=== PATIENT | female | born 1990 | race African-American/Black ===

== ENCOUNTER 2020-10-06 00:24 | Emergency (ER) | payer SELFPAY ==
[~2020-10-06] VITALS: Ht 157.5 cm; Wt 77.3 kg
--- NOTE | 2020-10-06 00:38 | PHYS DOC ---
Past Medical History Past Medical History: Asthma, Hypertension Past Surgical History: Hysterectomy Smoking Status: Never Smoker General Adult EDM: Chief Complaint: VAGINAL PROBLEM HPI: HPI: Patient is a 30 year old with a history of a hysterectomy following her second childbirth presents with a chief complaint of vaginal bleeding that is mild and with wiping after urinating for last 2 weeks. Patient also describes some burning with urination. Patient has some very minimal lower abdominal discomfort as well. Symptoms are worse with urinating. Patient is not using tampons. Patient denies any fevers, chills breath. Patient denies any vaginal lesions. Of note the patient sexual partner has herpes. Review of Systems: Review of Systems: Constitutional: Denies fever or chills. [] Eyes: Denies change in visual acuity. [] HENT: Denies nasal congestion or sore throat. [] Respiratory: Denies cough or shortness of breath. [] Cardiovascular: Denies chest pain or edema. [] GI: Complains of mild lower abdominal pain with no nausea, vomiting, bloody stools or diarrhea. [] : Complains of dysuria with scant vaginal bleeding Musculoskeletal: Denies back pain or joint pain. [] Integument: Denies rash. [] Neurologic: Denies headache, focal weakness or sensory changes. [] Endocrine: Denies polyuria or polydipsia. [] Lymphatic: Denies swollen glands. [] Psychiatric: Denies depression or anxiety. [] Heart Score: Risk Factors: Risk Factors: DM, Current or recent (<one month) smoker, HTN, HLP, family history of CAD, obesity. Risk Scores: Score 0 - 3: 2.5% MACE over next 6 weeks - Discharge Home Score 4 - 6: 20.3% MACE over next 6 weeks - Admit for Clinical Observation Score 7 - 10: 72.7% MACE over next 6 weeks - Early Invasive Strategies Current Medications: Current Medications Ceftriaxone Sodium (Rocephin Im) 250 mg 1X ONCE IM ; Start 10/06/20 at 01:00; Stop 10/06/20 at 01:01; Status UNV Azithromycin (Zithromax) 1,000 mg 1X ONCE PO ; Start 10/06/20 at 01:00; Stop 10/06/20 at 01:01; Status UNV Ondansetron HCl (Zofran Odt) 4 mg 1X ONCE PO ; Start 10/06/20 at 01:00; Stop 10/06/20 at 01:01; Status UNV Active Scripts Active Flagyl (Metronidazole) 500 Mg Tablet 1 Tab PO BID 10 Days Physical Exam: PE: Constitutional: Well developed, well nourished, no acute distress, non-toxic appearance. [] HENT: Normocephalic, atraumatic, bilateral external ears normal, no trismus, nose normal. [] Eyes: PERRLA, EOMI, conjunctiva normal, no discharge. [] Neck: Normal range of motion, no tenderness, supple, no stridor. [] Cardiovascular:Heart rate regular rhythm, peripheral pulse intact cap refills less than 2 seconds Lungs & Thorax: Bilateral breath sounds clear, no respiratory distress Abdomen: soft, very minimal lower abdominal tenderness without guarding or rebound no masses, no pulsatile masses. [] exam: Oil Well Pumper present, external exam normal, mild amount of white vaginal discharge, no vaginal bleeding. Vaginal cuff intact Skin: Warm, dry, no erythema, no rash. [] Back: No tenderness, no CVA tenderness. [] Extremities: No tenderness, no cyanosis, no clubbing, ROM intact, no edema. [] Neurologic: Alert and oriented X 3, normal motor function, normal sensory function, no focal deficits noted. [] Psychologic: Affect normal, judgement normal, mood normal. [] Current Patient Data: Labs: Laboratory Tests Test 10/06/20 00:30 10/06/20 00:37 Urine Collection Type Unknown Urine Color Yellow Urine Clarity Clear Urine pH 6.0 Urine Specific Roxton 1.020 Urine Protein Negative mg/dL Urine Glucose (UA) Negative mg/dL Urine Ketones (Stick) Negative mg/dL Urine Blood Negative Urine Nitrite Negative Urine Bilirubin Negative Urine Urobilinogen Dipstick 0.2 mg/dL Urine Leukocyte Esterase Negative Urine RBC 0 /HPF Urine WBC 0 /HPF Urine Squamous Epithelial Cells Few /LPF Urine Bacteria 0 /HPF Bedside Urine HCG, Qualitative Hcg negative Current Medications Medications (Trade) Dose Ordered Sig/Leticia Route PRN Reason Start Time Stop Time Status Last Admin Dose Admin Ceftriaxone Sodium (Rocephin Im) 250 mg 1X ONCE IM 10/06/20 01:00 10/06/20 01:01 UNV Azithromycin (Zithromax) 1,000 mg 1X ONCE PO 10/06/20 01:00 10/06/20 01:01 UNV Ondansetron HCl (Zofran Odt) 4 mg 1X ONCE PO 10/06/20 01:00 10/06/20 01:01 UNV Vital Signs: Vital Signs Date Time Temp Pulse Resp B/P (MAP) Pulse Ox O2 Delivery O2 Flow Rate FiO2 10/06/20 00:38 98.2 87 20 140/59 (86) 98 Room Air 98.2 EKG: EKG: [] Radiology/Procedures: Radiology/Procedures: [] Course & Med Decision Making: Course & Med Decision Making Pertinent Labs and Imaging studies reviewed. (See chart for details) [] 30-year-old female presents with vaginal bleeding. Patient is hemodynamically stable. Abdominal exam is benign. Patient be treated for STIs. Of note she has clue cells in her wet mount. Patient be treated for bacterial vaginosis. Dragon Disclaimer: Dragon Disclaimer: This electronic medical record was generated, in whole or in part, using a voice recognition dictation system. Departure Departure Impression: Primary Impression: Bacterial vaginosis Disposition: DC HOME SELF CARE/HOMELESS Condition: STABLE Referrals: DANIEL GEORGE MD Patient Instructions: Bacterial Vaginosis Additional Instructions: EMERGENCY DEPARTMENT GENERAL DISCHARGE INSTRUCTIONS THANK YOU for coming to [facility] Emergency Department (ED) today and trusting us with your care. We trust that you had a positive experience in our Emergency Department. If you wish to speak to the department Management you can contact the supervisor painting department at . YOUR FOLLOW UP INSTRUCTIONS ARE FOLLOWS: Do you have a private doctor? If you do not have a private doctor, please ask for a resource list of physicians or clinics that may be able to assist you with follow up care. The Emergency Physician has interpreted your x-rays. The X-ray specialist will also review them. If there is a change in the findings you will be notified in 48 hours when at all possible. A lab test or lab culture may have been done, your results will be reviewed and you will be notified if you need a change in treatment. ADDITIONAL INSTRUCTIONS AND INFORMATION Your care today has been supervised by a physician who is specially trained in emergency care. Many problems require more than one evaluation for a complete diagnosis and treatment. We recommend that you schedule your follow up appointment as recommended to ensure complete treatment of your illness or injury. If you are unable to obtain follow up care and continue to have a problem, or if your condition worsens we recommend that you return to the ED. We are not able to safely determine your condition over the phone nor are we able to give sound medical advice over the phone. For these safety reasons, if you call for medical advice we will ask you to come to the ED for further evaluation If you have any questions regarding these discharge instructions please call the ED at . SAFETY INFORMATION In the interest of safety, wellness, and injury prevention; we encourage you to wear your seatbelt, if you smoke; quit smoking, and we encourage your family to use protective helmet for bicycling and other sporting events that present an increased risk for head injury. IF YOUR SYMPTOMS WORSEN OR NEW SYMPTOMS DEVELOP, OR YOU HAVE CONCERNS ABOUT YOUR CONDITION; OR IF YOUR CONDITION WORSENS WHILE YOU ARE WAITING FOR YOUR FOLLOW UP APPOINTMENT; EITHER CONTACT YOUR PRIMARY CARE DOCTOR, THE PHYSICIAN WHOSE NAME AND NUMBER YOU WERE GIVEN, OR RETURN TO THE ED IMMEDIATELY. Scripts Metronidazole (FLAGYL) 500 Mg Tablet 1 TAB PO BID for 10 Days, #20 TAB Prov: LISA WATERS MD 10/06/20 LISA WATERS MD Oct 06, 2020 00:37
[2020-10-06 00:43] LABS: BILIRUBIN,URINE NEGATIVE (NEG); CLARITY,URINE CLEAR; COLOR,URINE YELLOW; NITRITE,URINE NEGATIVE (NEG); PROTEIN,URINE NEGATIVE (NEG-TRACE); UROBILINOGEN,URINE 0.2 mg/dL (0.2 mg/dL)
[2020-10-06 00:50] LABS: BACTERIA,URINE 0 /HPF (0-FEW); RBC,URINE 0 /HPF (0-2); WBC,URINE 0 /HPF (0-4)
[2020-10-06] MEDS ORDERED: cefTRIAXone IM 250 MG VIAL IM ONE (01:00)
[2020-10-06] MEDS ORDERED: ONDANSETRON ODT 4 MG TAB.RAPDIS. PO ONE (01:00)
[2020-10-06] MEDS ORDERED: AZITHROMYCIN 250 MG TABLET. PO ONE (01:00)
[2020-10-06] MEDS ORDERED: METR500T PO (01:06)
[2020-10-06 01:13] VITALS: BP 143/77
== END 2020-10-06 01:30 | disposition home or self-care (01) ==
LOC: ER 00:24
DX: N76.0 Acute vaginitis (principal); B96.89 Other specified bacterial agents as the cause of diseases classified elsewhere; R30.9 Painful micturition, unspecified; J45.909 Unspecified asthma, uncomplicated; I10 Essential (primary) hypertension; Z90.710 Acquired absence of both cervix and uterus
CPT/HCPCS: 81001; 81025; 87491; 87591; 96372; 99283; J0696; Q0111

== ENCOUNTER 2021-07-10 00:51 | Emergency (ER) | payer SELFPAY ==
[~2021-07-10] VITALS: Ht 160 cm; Wt 68.0 kg
[~2021-07-10 00:51] MED LIST: METR500T PO
[2021-07-10] MEDS ORDERED: ONDANSETRON PF 4 MG/2 ML VIAL. IVP ONE (01:15)
[2021-07-10] MEDS ORDERED: HYDROmorphone 2 MG/ML VIAL IVP ONE (01:15)
[2021-07-10] MEDS ORDERED: IV NORMAL SALINE 1000ML BAG 1,000 ML IV SCH (01:15)
[2021-07-10 01:31] LABS: BASO % 0 % (0-3); EOS # 0.1 x10^3/uL (0.0-0.7); EOS % 1 % (0-3); HEMOGLOBIN 10.9 g/dL (12.0-15.5); LYMPH # 2.1 x10^3/uL (1.0-4.8); LYMPH % 22 % (24-48); MEAN CORPUSCULAR HEMOGLOBIN 27 pg (25-35); MEAN CORPUSCULAR HGB CONC 33 g/dL (31-37); MEAN CORPUSCULAR VOLUME 80 fL (79-100); MONO # 0.5 x10^3/uL (0.0-1.1); MONO % 5 % (0-9); NEUT # 7.2 x10^3/uL (1.8-7.7); NEUT % 72 % (31-73); PLATELET COUNT 259 x10^3/uL (140-400); RED BLOOD COUNT 4.11 x10^6/uL (3.50-5.40); RED CELL DISTRIBUTION WIDTH 14.9 % (11.5-14.5); WHITE BLOOD COUNT 9.9 x10^3/uL (4.0-11.0)
[2021-07-10 01:42] LABS: CREATININE 1.1 mg/dL (0.6-1.0); GFR 71.1; POTASSIUM 3.8 mmol/L (3.5-5.1)
[2021-07-10 01:47] LABS: ALBUMIN 3.3 g/dL (3.4-5.0); ALBUMIN/GLOBULIN RATIO 0.7 (1.0-1.7); TOTAL BILIRUBIN 0.5 mg/dL (0.2-1.0); TOTAL PROTEIN 7.8 g/dL (6.4-8.2)
--- NOTE | 2021-07-10 01:59 | PHYS DOC ---
Past Medical History Past Medical History: Asthma, Hypertension Additional Past Medical Histor: SCOLIOSIS Past Surgical History: Hysterectomy Additional Past Surgical Histo: D&C Smoking Status: Never Smoker Alcohol Use: None General Adult EDM: Chief Complaint: ABDOMINAL PAIN HPI: HPI: Patient is a 30 year old female with history of hysterectomy and HTN not on medications who presents with epigastric abdominal pain. Started 3 hours prior to arrival after eating a piece of chicken. Has been constant. Sharp and very intense. Radiates through to the back and towards the right flank. Associated with nausea but no vomiting. No bowel movements stones onset of pain. No recent changes to bowel movements such as melena or bloody stools or diarrhea. Denies fever/chills. Denies dysuria, urgency, frequency. No recent vaginal symptoms. Denies alcohol use, or other drug use. Is not currently on any medications. NKDA Review of Systems: Review of Systems: Constitutional: Denies fever or chills. [] Eyes: Denies change in visual acuity. [] HENT: Denies nasal congestion or sore throat. [] Respiratory: Denies cough or shortness of breath. [] Cardiovascular: Denies chest pain or edema. [] GI: Reports abdominal pain, nausea. Denies vomiting, bloody stools or diarrhea. [] : Denies dysuria. [] Musculoskeletal: Denies back pain or joint pain. [] Integument: Denies rash. [] Neurologic: Denies headache, focal weakness or sensory changes. [] Endocrine: Denies polyuria or polydipsia. [] Lymphatic: Denies swollen glands. [] Psychiatric: Denies depression or anxiety. [] Heart Score: C/O Chest Pain: No Risk Factors: Risk Factors: DM, Current or recent (<one month) smoker, HTN, HLP, family history of CAD, obesity. Risk Scores: Score 0 - 3: 2.5% MACE over next 6 weeks - Discharge Home Score 4 - 6: 20.3% MACE over next 6 weeks - Admit for Clinical Observation Score 7 - 10: 72.7% MACE over next 6 weeks - Early Invasive Strategies Current Medications: Current Medications Medications (Trade) Dose Ordered Sig/Leticia Start Time Stop Time Status Last Admin Dose Admin Hydromorphone HCl (Dilaudid) 1 mg 1X ONCE 07/10/21 01:15 07/10/21 01:16 DC 07/10/21 01:34 1 MG Ondansetron HCl (Zofran) 4 mg 1X ONCE 07/10/21 01:15 07/10/21 01:16 DC 07/10/21 01:32 4 MG Sodium Chloride 1,000 ml @ 1,000 mls/hr Q1H 07/10/21 01:15 07/10/21 02:14 07/10/21 01:33 1,000 MLS/HR Allergies: Allergies: Allergies Coded Allergies Type Severity Reaction Last Updated Verified No Known Drug Allergies 10/06/20 No Physical Exam: PE: Constitutional: Appears uncomfortable. Laying in left lateral recumbent position with abdomen clenched. HENT: Normocephalic, atraumatic, Eyes: PERRLA, EOMI, Neck: Normal range of motion, no tenderness, supple, no stridor. [] Cardiovascular:Heart rate regular rhythm, no murmur [] Lungs & Thorax: Bilateral breath sounds clear to auscultation [] Abdomen: Primarily epigastric tenderness to palpation with voluntary guarding. No rigidity. No rebound. Skin: Warm, dry, no erythema, no rash. [] Extremities: No tenderness, no cyanosis, no clubbing, ROM intact, no edema. [] Neurologic: Alert and oriented X 3, normal motor function, normal sensory function, no focal deficits noted. [] Psychologic: Affect normal, judgement normal, mood normal. [] Current Patient Data: Labs: Laboratory Tests Test 07/10/21 01:23 White Blood Count 9.9 x10^3/uL (4.0-11.0) Red Blood Count 4.11 x10^6/uL (3.50-5.40) Hemoglobin 10.9 g/dL (12.0-15.5) L Hematocrit 33.0 % (36.0-47.0) L Mean Corpuscular Volume 80 fL (79-100) Mean Corpuscular Hemoglobin 27 pg (25-35) Mean Corpuscular Hemoglobin Concent 33 g/dL (31-37) Red Cell Distribution Width 14.9 % (11.5-14.5) H Platelet Count 259 x10^3/uL (140-400) Neutrophils (%) (Auto) 72 % (31-73) Lymphocytes (%) (Auto) 22 % (24-48) L Monocytes (%) (Auto) 5 % (0-9) Eosinophils (%) (Auto) 1 % (0-3) Basophils (%) (Auto) 0 % (0-3) Neutrophils # (Auto) 7.2 x10^3/uL (1.8-7.7) Lymphocytes # (Auto) 2.1 x10^3/uL (1.0-4.8) Monocytes # (Auto) 0.5 x10^3/uL (0.0-1.1) Eosinophils # (Auto) 0.1 x10^3/uL (0.0-0.7) Basophils # (Auto) 0.0 x10^3/uL (0.0-0.2) Sodium Level 136 mmol/L (136-145) Potassium Level 3.8 mmol/L (3.5-5.1) Chloride Level 100 mmol/L (98-107) Carbon Dioxide Level 33 mmol/L (21-32) H Anion Gap 3 (6-14) L Blood Urea Nitrogen 10 mg/dL (7-20) Creatinine 1.1 mg/dL (0.6-1.0) H Estimated GFR (Cockcroft-Gault) 71.1 BUN/Creatinine Ratio 9 (6-20) Glucose Level 113 mg/dL (70-99) H Calcium Level 9.0 mg/dL (8.5-10.1) Total Bilirubin 0.5 mg/dL (0.2-1.0) Aspartate Amino Transferase (AST) 53 U/L (15-37) H Alanine Aminotransferase (ALT) 40 U/L (14-59) Alkaline Phosphatase 64 U/L (46-116) Total Protein 7.8 g/dL (6.4-8.2) Albumin 3.3 g/dL (3.4-5.0) L Albumin/Globulin Ratio 0.7 (1.0-1.7) L Lipase 114 U/L (73-393) Laboratory Tests 07/10/21 01:23 Laboratory Tests 07/10/21 01:23 Vital Signs: Vital Signs Date Time Temp Pulse Resp B/P (MAP) Pulse Ox O2 Delivery O2 Flow Rate FiO2 07/10/21 01:34 18 99 Room Air 07/10/21 00:59 98.2 81 150/93 (112) 98.2 EKG: EKG: [] Radiology/Procedures: Radiology/Procedures: [] Impression: [facility] [address] [place] [address] IMAGING REPORT Signed PATIENT: RIAZ LYLE ACCOUNT: [id number] : 1990 LOCATION: ER AGE: 30 SEX: F EXAM STATUS: REG ER ORD. PHYSICIAN: ALEXIS TORRES MD REASON: epigastric pain radiating to back and right flank;OMNI 300, 75ML PROCEDURE: CT ABD PELV W/ IV CONTRST ONLY EXAM: CT Abdomen and Pelvis with IV contrast CLINICAL HISTORY: Reason: epigastric pain radiating to back and right flank COMPARISON: none TECHNIQUE: Helical CT of the abdomen and pelvis was performed following the administration of intravenous contrast. Axial, coronal and sagittal reformatted images were generated. PQRS compliance statement - One or more of the following individualized dose reduction techniques were utilized for this study: 1. Automated exposure control 2. Adjustment of the mA and/or kV according to patient size 3. Use of iterative reconstruction technique FINDINGS: Lower Chest: Lung bases are clear. Abdomen and Pelvis: Spleen, liver, gallbladder and pancreas are unremarkable. No biliary ductal dilatation. Parapelvic cysts right kidney. There is mild right hydronephrosis although no right hydroureter suggesting UPJ narrowing. No left hydronephrosis or hydroureter. Bladder is unremarkable. Moderate colonic stool content is seen. Appendix is normal. No small or large bowel dilatation. No bowel obstruction. No abdominal or pelvic lymphadenopathy. No abdominal or pelvic ascites. Aorta is normal in caliber. No aggressive osseou s lesion is seen. IMPRESSION: There is mild right hydronephrosis with normal caliber of the right ureter suggesting right UPJ narrowing. No renal tract calculus is seen. Electronically signed by: Royce Olvera MD (07/10/2021 2:22 AM) [facility] DICTATED and SIGNED BY: ROYCE OLVERA MD DATE: 07/10/21 [id number] 0 Course & Med Decision Making: Course & Med Decision Making Pertinent Labs and Imaging studies reviewed. (See chart for details) Patient is a 30-year-old female who presents with severe epigastric abdominal pain starting after eating approximately 3 hours prior to arrival. Pain radiates to right flank and back. CBC, CMP, lipase unremarkable. We will obtain CT abdomen/pelvis to ensure no CT evidence of pancreatitis, cholelithiasis, choledocholithiasis, cholecystitis. DDx also includes gastritis, PUD. although bleeding PUD seems unlikely given history and laboratory values. 0159 CT with only hydronephrosis noted in R kidney without stone. UA appears infected. ? if this could represent early pyelo given the R flank pain. Will treat with abx - cefdinir. Hemodyanmically stable, feel she is safe for outpatient management. 0257 AdECN Disclaimer: AdECN Disclaimer: This electronic medical record was generated, in whole or in part, using a voice recognition dictation system. Departure Departure Impression: Primary Impression: Hydronephrosis, right Additional Impression: Urinary tract infection, site not specified Disposition: [facility] Condition: STABLE Referrals: UNKNOWN PCP NAME (PCP) Patient Instructions: Urinary Tract Infection Additional Instructions: Please take full course of antibiotics as prescribed. If you develop high fevers, shaking chills, worsening pain, or inability to care for self at home please return to the emergency department for reevaluation. Scripts Cefdinir (CEFDINIR) 300 Mg Capsule 1 CAP PO BID for 7 Days, #14 CAP Prov: ALEXIS TORRES MD 07/10/21 ALEXIS TORRES MD Jul 10, 2021 01:59
[2021-07-10] MEDS ORDERED: IOHEXOL 300 MG/ML 100ML VIAL. IV ONE (02:15)
[2021-07-10] MEDS ORDERED: CONTRAST GIVEN. MC PRN (02:15)
--- NOTE | 2021-07-10 02:25 | RAD ---
EXAM: CT Abdomen and Pelvis with IV contrast CLINICAL HISTORY: Reason: epigastric pain radiating to back and right flank COMPARISON: none TECHNIQUE: Helical CT of the abdomen and pelvis was performed following the administration of intrave nous contrast. Axial, coronal and sagittal reformatted images were generated. PQRS compliance statement - One or more of the following individualized dose reduction techniques wer e utilized for this study: 1. Automated exposure control 2. Adjustment of the mA and/or kV according to patient size 3. Use of iterative reconstruction technique FINDINGS: Lower Chest: Lung bases are clear. Abdomen and Pelvis: Spleen, liver, gallbladder and pancreas are unremarkable. No biliary ductal dilatation. Parapelvic cy sts right kidney. There is mild right hydronephrosis although no right hydroureter suggesting UPJ laura rowing. No left hydronephrosis or hydroureter. Bladder is unremarkable. Moderate colonic stool content is seen. Appendix is normal. No small or large bowel dilatation. No nadege wel obstruction. No abdominal or pelvic lymphadenopathy. No abdominal or pelvic ascites. Aorta is nor mal in caliber. No aggressive osseous lesion is seen. IMPRESSION: There is mild right hydronephrosis with normal caliber of the right ureter suggesting right UPJ narro wing. No renal tract calculus is seen. Electronically signed by: Royce Olvera MD (07/10/2021 2:22 AM) TONE
[2021-07-10 02:34] LABS: BILIRUBIN,URINE NEGATIVE (NEG); CLARITY,URINE CLOUDY; COLOR,URINE YELLOW; NITRITE,URINE POSITIVE (NEG); PROTEIN,URINE NEGATIVE (NEG-TRACE); UROBILINOGEN,URINE 0.2 mg/dL (0.2 mg/dL)
[2021-07-10 02:41] LABS: BACTERIA,URINE MANY /HPF (0-FEW); RBC,URINE 0 /HPF (0-2); WBC,URINE 20-40 /HPF (0-4)
[2021-07-10] MEDS ORDERED: CEFD300C PO (03:01)
[2021-07-10 04:30] VITALS: BP 123/76
== END 2021-07-10 05:00 | disposition home health service (06) ==
LOC: ER 00:51
DX: N13.30 Unspecified hydronephrosis (principal); N39.0 Urinary tract infection, site not specified; J45.909 Unspecified asthma, uncomplicated; I10 Essential (primary) hypertension; Z90.710 Acquired absence of both cervix and uterus
CPT/HCPCS: 36415; 74177; 80053; 81001; 83690; 85025; 87086; 96361; 96374; 96375; 99285; J1170; J2405; J7030; Q9967; 87077; 87186

== ENCOUNTER 2021-12-07 19:57 | Emergency (ER) | payer OTHER ==
[~2021-12-07] VITALS: Ht 157.5 cm; Wt 90.0 kg
[~2021-12-07 19:57] MED LIST changes: +CEFD300C PO
[2021-12-07] MEDS ORDERED: NAPROXEN 500 MG TABLET PO STA (20:09)
[2021-12-07] MEDS ORDERED: LIDOCAINE 1% Multi-Dose 20 ML VIAL. INJ ONE (20:15)
[2021-12-07] MEDS ORDERED: HYDROcodone/APAP 5/325MG 1 TAB TABLET PO ONE (20:15)
--- NOTE | 2021-12-07 20:25 | RAD ---
Exam: Right foot 3 views INDICATION: Pain, dropped head board on foot TECHNIQUE: Frontal, lateral oblique views of the right foot Comparisons: None FINDINGS: Bone mineralization is normal. No acute or healed fractures. Soft tissue swelling at the forefoot. Roya int spaces are well-maintained. IMPRESSION: Diffuse soft tissue swelling at the forefoot without underlying osseous abnormality identified. Electronically signed by: Gume Packer MD (12/07/2021 8:22 PM) [facility]AN[facility]
--- NOTE | 2021-12-07 21:28 | PHYS DOC ---
Past Medical History Past Medical History: Asthma, Hypertension Additional Past Medical Histor: SCOLIOSIS Past Surgical History: , Hysterectomy, Other Additional Past Surgical Histo: D&C Smoking Status: Never Smoker Alcohol Use: None General Adult EDM: Chief Complaint: LACERATION/AVULSION HPI: HPI: Patient is a 31 year old female who presents to the ED today with right fifth toe laceration, patient states she was moving a headboard that fell on her toe. Review of Systems: Review of Systems: Constitutional: Denies fever or chills. []] Musculoskeletal: Denies back pain or joint pain. [] Integument: Reports right fifth toe laceration Neurologic: Denies headache, focal weakness or sensory changes. [] Psychiatric: Denies depression or anxiety. [] Heart Score: C/O Chest Pain: N/A Risk Factors: Risk Factors: DM, Current or recent (<one month) smoker, HTN, HLP, family history of CAD, obesity. Risk Scores: Score 0 - 3: 2.5% MACE over next 6 weeks - Discharge Home Score 4 - 6: 20.3% MACE over next 6 weeks - Admit for Clinical Observation Score 7 - 10: 72.7% MACE over next 6 weeks - Early Invasive Strategies Current Medications: Current Medications Medications (Trade) Dose Ordered Sig/Leticia Start Time Stop Time Status Last Admin Dose Admin Acetaminophen/ Hydrocodone Bitart (Lortab 5/325) 2 tab 1X ONCE 12/07/21 20:15 12/07/21 20:16 DC 12/07/21 20:26 2 TAB Lidocaine HCl (Lidocaine 1% 20ml Vial) 20 ml 1X ONCE 12/07/21 20:15 12/07/21 20:16 DC 12/07/21 20:26 20 ML Naproxen (Naprosyn) 500 mg 1X STAT 12/07/21 20:09 12/07/21 20:11 DC 12/07/21 20:26 500 MG Allergies: Allergies: Allergies Coded Allergies Type Severity Reaction Last Updated Verified No Known Drug Allergies 10/06/20 No Physical Exam: PE: Constitutional: Well developed, well nourished, no acute distress, non-toxic appearance. [] Skin: Proximal end of the right fifth toe with a laceration approximately 2 cm long, there is swelling on the right fifth toe on the rest of the toes. There is tenderness on the right fifth toe, unable to do a full exam on this toe because patient would not let me touch it. Limited range of motion to the right fifth toe. +2 right pedal pulse. Cap refill less than 2 seconds to right toes Back: No tenderness, no CVA tenderness. [] Extremities: No tenderness, no cyanosis, no clubbing, ROM intact, no edema. [] Neurologic: Alert and oriented X 3, normal motor function, normal sensory function, no focal deficits noted. [] Psychologic: Affect normal, judgement normal, mood normal. [] Current Patient Data: Vital Signs: Vital Signs Date Time Temp Pulse Resp B/P (MAP) Pulse Ox O2 Delivery O2 Flow Rate FiO2 12/07/21 20:26 18 12/07/21 20:13 98.1 78 135/76 (95) 95 Room Air 98.1 EKG: EKG: [] Radiology/Procedures: Radiology/Procedures: []PROCEDURE: FOOT RIGHT 3V Exam: Right foot 3 views INDICATION: Pain, dropped head board on foot TECHNIQUE: Frontal, lateral oblique views of the right foot Comparisons: None FINDINGS: Bone mineralization is normal. No acute or healed fractures. Soft tissue swelling at the forefoot. Joint spaces are well-maintained. IMPRESSION: Diffuse soft tissue swelling at the forefoot without underlying osseous abnormality identified. Electronically signed by: Gume Trinh MD (12/07/2021 8:22 PM) [facility] DICTATED and SIGNED BY: GUME TRINH MD DATE: 12/07/[id number] 0 Course & Med Decision Making: Course & Med Decision Making Pertinent Labs and Imaging studies reviewed. (See chart for details) This is a 31-year-old female patient presented to the ED today with injury to the right fifth toe, a headboard fell on it, has a laceration over the toe. There is no nail involvement. Right foot x-rays are negative for any acute findings. Tetanus updated. Offered to close the laceration with stitches, patient refused, she would not even let me touch the affected toe. The partner was able to clean it for hand, was able to cover it. Tetanus was updated. Wound care instructions and return precautions provided. Discharged to home Rimma Disclaimer: Rimma Disclaimer: This electronic medical record was generated, in whole or in part, using a voice recognition dictation system. Departure Departure Impression: Primary Impression: Toe laceration Qualified Codes: S91.111A - Laceration without foreign body of right great toe without damage to nail, initial encounter Additional Impression: Contusion of toe of right foot Qualified Codes: S90.121A - Contusion of right lesser toe(s) without damage to nail, initial encounter Disposition: HOME / SELF CARE / HOMELESS Condition: STABLE Referrals: UNKNOWN PCP NAME (PCP) follow up with your doctor in 1-2 weeks Patient Instructions: Contusion, [id number], Laceration Care, Adult Additional Instructions: You have right little toe laceration, keep the area clean and dry. Apply Mupirocin to the area three times a day for 10 days. Monitor the area for any signs of infection including but not limited to gross redness, warmth, yellow drainage from the area and return to the ED if they occur. Scripts Mupirocin (MUPIROCIN OINTMENT) 22 Gm Oint...g. 1 MONET TP TID for WOUND CARE, #1 EACH Prov: SYBIL MAHMOOD APRN 12/07/21 Hydrocodone Bit/Acetaminophen (HYDROCODONE-APAP 5-325 ) 1 Tab Tablet 1 TAB PO PRN Q6HRS PRN for PAIN, #14 TAB 0 Refills Prov: SYBIL MAHMOOD APRN 12/07/21 SYBIL MAHMOOD APRN Dec 07, 2021 21:28
[2021-12-07] MEDS ORDERED: HYDR-2761 PO (21:31)
[2021-12-07 21:50] VITALS: BP 130/71
[2021-12-07] MEDS ORDERED: MUPI22OI2 TP (21:56)
[2021-12-07] MEDS ORDERED: MUPIROCIN 2 % OINTMENT 22GM TUBE. TP ONE (22:00)
[2021-12-07] MEDS ORDERED: DIPHTH,PERTUSS(ACELL),TET TOX 0.5 ML DISP.SYRIN. VAX IM ONE (22:00)
== END 2021-12-07 21:58 | disposition home or self-care (01) ==
LOC: ER 19:57
DX: S91.111A Laceration without foreign body of right great toe without damage to nail, initial encounter (principal); S90.121A Contusion of right lesser toe(s) without damage to nail, initial encounter; J45.909 Unspecified asthma, uncomplicated; I10 Essential (primary) hypertension; W20.8XXA Other cause of strike by thrown, projected or falling object, initial encounter; Y93.89 Activity, other specified; Y92.89 Other specified places as the place of occurrence of the external cause; Y99.8 Other external cause status
CPT/HCPCS: 73630; 90471; 90715; 99284; J3490

== ENCOUNTER → 2022-03-05 | Emergency (ER) | payer OTHER ==
[~2022-03-05] MED LIST changes: +HYDR-2761 PO; +MUPI22OI2 TP
== END | disposition left against medical advice (07) ==
LOC: ER 22:52
DX: R09.89 Other specified symptoms and signs involving the circulatory and respiratory systems (principal); Z53.21 Procedure and treatment not carried out due to patient leaving prior to being seen by health care provider

== ENCOUNTER 2022-03-06 16:45 | Emergency (ER) | payer OTHER ==
[~2022-03-06] VITALS: Ht 160 cm; Wt 88.0 kg
--- NOTE | 2022-03-06 17:26 | PHYS DOC ---
Past Medical History Past Medical History: Asthma, Hypertension Additional Past Medical Histor: SCOLIOSIS Past Surgical History: , Hysterectomy, Other Additional Past Surgical Histo: D&C Smoking Status: Never Smoker Alcohol Use: None General Adult EDM: Chief Complaint: FLU SYMPTOM HPI: HPI: Patient is a 31-year-old female who presents today with body aches, nasal congestion and overall fatigue. Patient states that she has had her symptoms for a little over 5 to 7 days, she states that her children have also been sick at home and diagnosed with influenza, she has not taken any test to see if she has COVID or influenza. Review of Systems: Review of Systems: Constitutional: Denies fever or chills. [] Eyes: Denies change in visual acuity. [] HENT: Nasal congestion and ear pAIN Respiratory: Denies cough or shortness of breath. [] Cardiovascular: Denies chest pain or edema. [] GI: Denies abdominal pain, nausea, vomiting, bloody stools or diarrhea. [] : Denies dysuria. [] Musculoskeletal: Body aches denies back pain or joint pain. [] Integument: Denies rash. [] Neurologic: Denies headache, focal weakness or sensory changes. [] Endocrine: Denies polyuria or polydipsia. [] Lymphatic: Denies swollen glands. [] Psychiatric: Denies depression or anxiety. [] Heart Score: C/O Chest Pain: No Risk Factors: Risk Factors: DM, Current or recent (<one month) smoker, HTN, HLP, family history of CAD, obesity. Risk Scores: Score 0 - 3: 2.5% MACE over next 6 weeks - Discharge Home Score 4 - 6: 20.3% MACE over next 6 weeks - Admit for Clinical Observation Score 7 - 10: 72.7% MACE over next 6 weeks - Early Invasive Strategies Current Medications: Current Medications Medications (Trade) Dose Ordered Sig/Leticia Start Time Stop Time Status Last Admin Dose Admin Ketorolac Tromethamine (Toradol Im) 60 mg 1X ONCE 03/06/22 17:30 03/06/22 17:31 UNV Allergies: Allergies: Allergies Coded Allergies Type Severity Reaction Last Updated Verified No Known Drug Allergies 10/06/20 No Physical Exam: PE: Constitutional: Well developed, well nourished, mild distress, non-toxic appearance. [] HENT: Normocephalic, atraumatic, bilateral tympanic membranes are within normal limits, nasal congestion is noted with the nares being reddened oropharynx is moist with no oral exudate noted Eyes: PERRLA, EOMI, conjunctiva normal, no discharge. [] Neck: Normal range of motion, no tenderness, supple, no stridor. [] Cardiovascular:Heart rate regular rhythm, no murmur [] Lungs & Thorax: Bilateral breath sounds rhonchi noted throughout Abdomen: Bowel sounds normal, soft, no tenderness, no masses, no pulsatile masses. [] Skin: Warm, dry, no erythema, no rash. [] Back: No tenderness, no CVA tenderness. [] Extremities: No tenderness, no cyanosis, no clubbing, ROM intact, no edema. [] Neurologic: Alert and oriented X 3, normal motor function, normal sensory function, no focal deficits noted. [] Psychologic: Affect normal, judgement normal, mood normal. [] Current Patient Data: Labs: Laboratory Tests Test 03/06/22 17:29 Influenza Type A Antigen Negative Influenza Type B Antigen Negative SARS-CoV-2 Antigen (Rapid) Negative Current Medications Medications (Trade) Dose Ordered Sig/Leticia Route PRN Reason Start Time Stop Time Status Last Admin Dose Admin Ketorolac Tromethamine (Toradol Im) 60 mg 1X ONCE IM 03/06/22 17:30 03/06/22 17:31 DC 03/06/22 17:39 Vital Signs: Vital Signs Date Time Temp Pulse Resp B/P (MAP) Pulse Ox O2 Delivery O2 Flow Rate FiO2 03/06/22 19:00 98.3 91 20 136/79 (98) 98 Room Air 98.3 03/06/22 16:48 98.3 98 20 146/87 (106) 99 Room Air 98.3 Vital Signs Date Time Temp Pulse Resp B/P (MAP) Pulse Ox O2 Delivery O2 Flow Rate FiO2 03/06/22 16:48 98.3 98 20 146/87 (106) 99 Room Air 98.3 EKG: EKG: [] Radiology/Procedures: Radiology/Procedures: REASON: COUGH PROCEDURE: CHEST PA & LATERAL XR CHEST 2V History: Reason: COUGH / Spl. Instructions: / History: Comparison: None. Findings: No consolidation or pleural effusion. Normal heart size. No pneumothorax. Impression: 1. No acute cardiopulmonary process. Electronically signed by: Vasyl Kirk DO (03/06/2022 6:39 PM) [facility] Course & Med Decision Making: Course & Med Decision Making Pertinent Labs and Imaging studies reviewed. (See chart for details) 1850 patient states her pain is better and she is feeling better, I did inform her that her laboratory results did not show positive for influenza or COVID, as well as her chest x-ray was within normal limits and no acute findings noted. I did inform her she may be at the tail end of the either influenza or COVID since her children were positive for influenza or she has a viral illness that has just worn her down. Patient is to increase by mouth fluids, take Tylenol and/or ibuprofen as needed for pain and to follow-up with her primary care physician should she not get any better in 3 to 5 days. Patient will be given a dose of Decadron here in the emergency department for the rhonchi that she was having in her lungs. [] Rimma Disclaimer: Rimma Disclaimer: This electronic medical record was generated, in whole or in part, using a voice recognition dictation system. Departure Departure Impression: Primary Impression: Cough in adult patient Additional Impression: Viral syndrome Disposition: HOME / SELF CARE / HOMELESS Condition: STABLE Referrals: UNKNOWN PCP NAME (PCP) Patient Instructions: Viral Syndrome Additional Instructions: Tylenol and/or ibuprofen as needed for pain/fever Cool-mist humidifier to help with coughing [id number] Claritin or Zyrtec as labeled directed daily to help with nasal congestion [id number]-[id number] Flonase 2 sprays each side of the nose twice daily to help with nasal congestion Myrx-jvh-zlyhuzb nasal decongestant to help with symptoms as well Follow-up with your primary care physician or one of the listed clinics below for further evaluation and management if you are not feeling any better in 3 to 5 days Return here to the emergency department should you have increase chest pain, increased shortness of breath, any bluing of your lips or face, or fever that is not relieved with Tylenol and/or ibuprofen. Thanh [facility] [address] [place] [address] [facility] [address] [place] [address] [address] [place] [address] [facility] [address] [place] [address] [facility] [address] [place] [address] [address] [place] [address] [address] [place] [address] [facility] [address] [place] [address] [facility] [address] [place] [address] [facility] Department [address] [place] [address] ALISHA OSULLIVAN APRN March 06, 2022 17:26
[2022-03-06] MEDS ORDERED: KETOROLAC 60 MG/2 ML VIAL. IM ONE (17:30)
[2022-03-06 17:53] LABS: INFLUENZA A PATIENT NEGATIVE (NEGATIVE); INFLUENZA B PATIENT NEGATIVE (NEGATIVE)
--- NOTE | 2022-03-06 18:41 | RAD ---
XR CHEST 2V History: Reason: COUGH / Spl. Instructions: / History: Comparison: None. Findings: No consolidation or pleural effusion. Normal heart size. No pneumothorax. Impression: 1. No acute cardiopulmonary process. Electronically signed by: Vasyl Kirk DO (03/06/2022 6:39 PM) [facility]
[2022-03-06 19:00] VITALS: BP 136/79
[2022-03-06] MEDS ORDERED: DEXAMETHASONE 4 MG TABLET PO ONE (19:00)
== END 2022-03-06 19:18 | disposition home or self-care (01) ==
LOC: ER 16:45
DX: B34.9 Viral infection, unspecified (principal); J45.909 Unspecified asthma, uncomplicated; Z20.822 Contact with and (suspected) exposure to COVID-19; I10 Essential (primary) hypertension
CPT/HCPCS: 71046; 87428; 96372; 99284; J1885